=== PATIENT | female | born 1985 | race Caucasian/White ===

== ENCOUNTER 2024-02-05 19:51 | Emergency (ER) | payer BC, SELFPAY ==
[2024-02-05 20:09] VITALS: BP 130/84; PULSE 78; RESP 18; TEMP 37.2; O2SAT 97; BMI 29.8
--- NOTE | 2024-02-05 20:14 | ED.GENADULT ---
HPI - General Adult General Time Seen by Provider: 20:15 Date Seen: 02/05/24 Chief complaint: Unspecified Complaint, Adult Stated complaint: swollen all day Time Seen by Provider: 02/05/24 20:07 Source: patient, RN notes reviewed and old records reviewed Mode of arrival: ambulatory Limitations: no limitations History of Present Illness HPI narrative: 39-year-old female who comes in today complaining of joint pain and body swelling. Patient notes she woke up this morning and felt like her hands and arms were little bit puffy and tight. This has gotten worse during the course the day and she noticed that her legs seem little swollen the well, also some swelling of the face. She also has developed some pain in the joints of her hands, wrists, elbows and little bit in her knees and feet. Took ibuprofen for this with minimal improvement. Denies new exposures, denies recent sunburn, denies recent illness or sore throat, denies urinary symptoms. No chest pain or shortness of breath, does feel little bit of abdominal bloating. Related Data Home Medications Medication Instructions Recorded Confirmed No Known Home Medications 02/05/24 02/05/24 Allergies Allergy/AdvReac Type Severity Reaction Status Date / Time Sulfa (Sulfonamide Allergy Vomiting Verified 02/05/24 20:16 Antibiotics) acetaminophen [From Vicodin] AdvReac Vomiting Verified 02/05/24 20:16 hydrocodone [From Vicodin] AdvReac Vomiting Verified 02/05/24 20:16 [facility] Social History Smoking Status: Never smoker Do you use any of these nicotine containing products: None Second hand tobacco smoke exposure: No How often do you have a drink containing alcohol: monthly or less How often do you have six or more drinks on one occasion: Never AUDIT-C Alcohol total score: 1 Non-prescribed substance use: denies use service: No Exam Narrative: Exam Narrative: General: Well-developed and well-nourished, no acute distress Head: Atraumatic and normocephalic Eyes: Pupils are equal reactive, extraocular motions intact, conjunctiva clear ENT: External nose and ears are normal, posterior pharynx without erythema or exudate Neck: No midline cervical tenderness, full spontaneous range of motion the neck, trachea midline, no adenopathy Heart: Regular rate and rhythm no murmurs or thrills Lungs: Clear to auscultation bilaterally without wheezes or crackles Abdomen: Soft, nontender, nondistended with active bowel sounds Musculoskeletal: Mild edema of the hands, feet ankles and lower legs, forearms. No joint effusions or tenderness of the elbows, wrists, MCP, DI P, or PIP joints. Patient does have mild achiness of the D IP and PIP as well as the wrists with passive flexion and extension. Neurologic: Awake, alert, and oriented x3, no gross focal neurologic deficits, cranial nerves intact as tested Psych: Mood and affect are appropriate Skin: No rashes, sunburn Const: Vital Signs, click to edit/add: Vital Signs - 24 hr 02/05/24 20:09 Temperature 98.9 F Pulse Rate [Pulse Oximeter] 78 Respiratory Rate 18 Blood Pressure [Ri ght Upper Arm] 130/84 Pulse Oximetry 97 Oxygen Delivery Me thod Room Air Course Course ED Course: Patient seen examined, prior records reviewed. Patient presents today with sensation of swelling of the hands, arms, legs, and face as well as little bit of the abdomen. On exam, she has trace to mild swelling of the hands with loss of the heads of the metacarpals. Mild pain with passive movements of the DIP. PIP joints of the fingers bilaterally but no warmth, redness, tenderness, or swelling. Similar. Findings with wrists and elbows with again no joint redness, warmth, swelling, or effusion. Lungs are clear on exam. Concern for possible hepatic or renal pathology including nephrotic syndrome, viral infection, or rheumatologic process. Thyroid dysfunction also possible although fairly abrupt onset. Bacterial infectious etiology is clinically unlikely. Heart failure clinically unlikely in absence of chest pain, shortness of breath, abnormal lung exam, or pitting edema. Labs are ordered and will continue to monitor. Reevaluation(s) Time of Reevaluation #1: 21:50 Reevaluation #1: Labs ordered and independently interpreted by me with normal basic panel, normal CBC, negative CRP, normal BNP, urinalysis without proteinuria. No definite etiology for patient's swelling is found today, this could be related to fluid overload although no evidence for heart failure, no evidence for nephrotic syndrome or hepatic pathology. Cannot exclude rheumatologic condition but negative CRP makes this a little less likely. Discussed with patient, will be started on short course of prednisone close follow-up with primary care for further evaluation and treatment. Vital Signs Vital signs: Initial Vital Signs Temperature 98.9 F 02/05/24 20:09 Temperature Source Temporal Artery Scan 02/05/24 20:09 Pulse Rate 78 02/05/24 20:09 Pulse Rhythm Regular 02/05/24 20:09 Respiratory Rate 18 02/05/24 20:09 Blood Pressure 130/84 02/05/24 20:09 Blood Pressure Mean 99 02/05/24 20:09 Blood Pressure Position Supine 02/05/24 20:09 Pulse Oximetry 97 02/05/24 20:09 Oxygen Delivery Method Room Air 02/05/24 20:09 Vital Signs Temperature 98.9 F 02/05/24 20:09 Pulse Rate 78 02/05/24 20:09 Respiratory Rate 18 02/05/24 20:09 Blood Pressure 130/84 02/05/24 20:09 Pulse Oximetry 97 02/05/24 20:09 Oxygen Delivery Method Room Air 02/05/24 20:09 Temperature 98.9 F 02/05/24 20:09 Pulse Rate 78 02/05/24 20:09 Respiratory Rate 18 02/05/24 20:09 Blood Pressure 130/84 02/05/24 20:09 Pulse Oximetry 97 02/05/24 20:09 Oxygen Delivery Method Room Air 02/05/24 20:09 Medical Decision Making Lab Data Labs: Lab Results 02/05/24 02/05/24 Range/Units 20:30 21:00 WBC 5.83 (4.50-11.00) K/uL RBC 3.93 L (4.00-5.20) m/uL Hgb 12.1 (12.0-16.0) gm/dL Hct 34.8 (33.0-51.0) % MCV 89 (80-100) fL MCH 31 (26-34) pg MCHC 35 (32-36) gm/dL RDW Coeff of Tan 11.8 (11.5-15.5) % Plt Count 271 (140-440) K/uL Neut % (Auto) 56.5 (42.0-72.0) % Lymph % (Auto) 26.8 (20-44) % [place] % (Auto) 6.9 (0.0-11.0) % Eos % (Auto) 8.1 H (0.0-7.0) % Baso % (Auto) 1.2 (0.0-3.0) % Neut # (Auto) 3.30 (1.7-7.0) K/uL Lymph # (Auto) 1.56 (0.90-2.90) K/uL [place] # (Auto) 0.40 (0.00-0.90) K/UL Eos # (Auto) 0.50 (0.00-0.50) K/uL Baso # (Auto) 0.07 (0.00-0.30) K/uL Abs Immat Gran (auto) 0.03 (0.00-0.30) K/uL Imm/Tot Granulo (auto) 0.5 % Sodium 140 (135-149) mmol/L Potassium 3.7 (3.6-5.1) mmol/L Chloride 109 (96-114) mmol/L Carbon Dioxide 27 (20-32) mmol/L Anion Gap 4 L (7-15) mEq/L BUN 14 (5-24) mg/dL Creatinine 0.7 (0.5-1.5) mg/dL Estimated Creat Clear 111.65 Estimated GFR 112 ml/min Glucose 107 (60-115) mg/dL Calcium 8.5 (8.4-10.6) mg/dL Magnesium 2.1 (1.5-2.6) mg/dL Total Bilirubin 0.4 (0.1-1.5) mg/dL Direct Bilirubin 0.0 (0.0-0.5) mg/dL AST 28 (12-35) U/L ALT 26 (4-35) U/L Alkaline Phosphatase 48 (40-150) U/L C-Reactive Protein < 0.5 L (0.5-1.0) mg/dL NT-Pro-B Natriuret Pep 94 pg/mL Total Protein 6.8 (6.0-8.3) g/dL Albumin 3.9 (3.3-5.0) g/dL Urine Color Yellow (Yellow) Urine Appearance Clear (Clear) Urine pH 5.5 (5.0-8.5) Ur Specific Sunbright 1.015 (1.000-1.030) Urine Protein Negative (Negative) Urine Glucose (UA) Negative (Negative) Urine Ketones Negative (Negative) Urine Blood Negative (Negative) Urine Nitrite Negative (Negative) Urine Bilirubin Negative (Negative) Urine Urobilinogen 0.2 (0.2-1.0) Ur Leukocyte Esterase Negative (Negative) Urine RBC 0-2 (0-2) Urine WBC 0-2 (0-5) Ur Squamous Epith Cells Few (None-Few) Urine Bacteria Few A (None) Discharge Plan Discharge Clinical Impression: Arthralgia, Swelling Patient Disposition: Home, Self-Care Condition: Stable Instructions: Arthralgia (ED), Edema (ED) Additional Instructions: No definite cause for symptoms is found today. Testing for kidneys, liver, heart, inflammation are all negative. Take prednisone as prescribed follow-up with your regular doctor. Prescriptions: No Action No Known Home Medications Follow Up/Referrals: Raine Gomez MD [Primary Care Provider] - Stand Alone Forms: [employer] Info Instructions
--- NOTE | 2024-02-05 20:16 | PC.NURSE ---
Pt denies any recent travel, camping, hiking. Denies having food allergies. No recent illness. 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
--- OUTSIDE RECORDS SUMMARY | 2024-02-05 20:47 | XMS_ITS | Clinical Summary ---
Author Name Unknown Organization [facility] [employer] [facility] Address [place], [place] [address] Care Team Providers Care Onsite Health Coach Name Role Phone JasonRaine nieves MD Primary Care Provider Allergies Active Allergy Reactions Criticality Noted Date Comments Sulfa (Sulfonamide Antibiotics) *Unknown - Childhood Rxn Hydrocodone-Acetaminophen Vomiting 08/20/2013 Medications Medication Sig Dispensed Refills Start Date End Date Status multivitamin (MVI) tablet Take 1 tablet by mouth once daily. 0 10/29/2020 Active fluocinonide 0.05% topical (LIDEX) 0.05 % creamIndications:Ch ronic eczema Apply topically to affected area(s) two times daily. 30 g 06/10/2023 Active Phentermine HCl 30 mg capsuleIndications: Obesity (BMI 30.0-34.9) Take 1 Capsule (30 mg) by mouth once daily. 30 Capsule 11/25/2023 Active Active Problems Problem Noted Date Diagnosed Date Uterine leiomyoma 02/27/2016 Resolved Problems Problem Noted Date Diagnosed Date Resolved Date Normal in multigravida 03/24/2015 12/30/2015 Overview: Flu shot 07/14/2015. It's a girl! 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 consult obtained, fetus unaffected. Percocet and acetaminophen for pain control. May need hysteroscopy post It's a girl! TDaP 01/22/2014 GBS negative. HEMOGLOBIN (g/dL) Date Value 03/05/2014 14.0 Alcohol abuse, unspecified 03/27/2007 0 11/12/2013 Encounters Date Type Department Care Team Description 02/05/[address] [facility] [address] [place] [address] Raine Gomez MD Foot Pain/problem 11/27/[address] [facility] [address] [place] [address] Raine Gomez MD Refill Request (Phentermine Hcl) 11/25/[address] [facility] [address] [place] [address] Raine Gomez MD Refill Request (Phentermine HCL Oral Capsule 30mg ) from Last 3 Months Immunizations Name Administration Dates Next Due AMB Influenza, IIV4 PF (=>6 mos Flulaval,Fluzone Fluarix)(Flu Clinic Only) 07/24/2020 COVID-19 Vaccine Spikevax (M oderna 50mcg/0.5mL) 12YO+ [id number] Formula PF 08/10/2023 COVID-19 vaccine ([employer] NTech 30mcg/0.3mL) 12YO+ BIVALENT PF, MDV 08/18/2022 COVID-19 vaccine ([employer]-Bio NTech 30mcg/0.3mL) PF, MDV 08/14/2021 Influenza A (H1N1), Inactiva haritha (Age >=3 Years) 10/22/2009 Influenza, IIV3 (Age >=3 years) 09/03/2013 Influenza, IIV4 08/10/2023,,07/01/2021,06/08,06/20/2018,08/02/2017,10/11/2016 ,07/14/2015 MMR 04/17/1996 Meningococcal Vaccine 08/22/2002 Td (Age >=7 Years) 04/17/1996 Tdap 09/12/2015,01/22/2014,05/04/2006 Tuberculin (PPD) 04/10/2012 Family History Medical History Relation Name Comments Diabetes Father Hyperlipidemia Father Hypertension Father Cancer-breast Maternal Aunt diagnosed at age 59 Other Maternal Grandfather lung ca ncer with mets Good Health Maternal Grandmother Other Maternal Uncle brain cancer Good Health Mother Hyperlipidemia Mother Melanoma Mother Brain cancer Other maternal uncles x2, maternal cousins x3 Stroke Paternal Grandfather Stroke Paternal Grandmother Cancer-pancreatic No Family History Relation Name Status Comments Father Alive Maternal Aunt Alive Maternal Grandfather Maternal Grandmother Alive Maternal Uncle Mother Alive Other Paternal Grandfather Paternal Grandmother Social History Tobacco Use Types Packs/Day Years Used Date Smoking Tobacco: Never Smokeless Tobacco: Never Tobacco Cessation:Counseling Given: No Alcohol Use Standard Drinks/Week Comments Yes 0 (1 standard drink = 0.6 oz pur e alcohol) rare PHQ-2 Answer Date Recorded PHQ-2 TOTAL SCORE 1 03/30/2023 Social Connections Answer Date Recorded Frequency of Communication with Friends and Fami ly 0 04/27/2023 Financial Resource Strain Answer Date R ecorded Difficulty of Paying Living Expenses 3 04/27/2023 Difficulty of Paying Living Expenses Not on file 04/27/2023 Food Insecurity Answer Date Recorded Worried About Running Out of Food in the Last Ye ar 1 04/27/2023 Transportation Needs Answer Date Record ed Lack of Transportation (Medical) 1 04/27/2023 Housing Stability Answer Date Recorded Unable to Pay for Housing in the Last Year 1 04/27/2023 Sex and Gender Information Value Date Recorded Sex Assigned at Not on file Gender Identity Not on file Sexual Orientation Not on file Obstetrics History Para Term AB IAB SAB Ectopic Multiple Livin g Live Births 2 1 1 2 1 Date Outcome GA Total Labor Labor/2nd/3rd Weight Sex Delivery Anes PTL Leticia A1 A5 Name Cl in 03/31 Term 39w 6d F Vag Epidu ral N Latoya ng Tappe r Complications:Other Excessiv e Bleeding Last Filed Vital Signs Vital Sign Reading Time Taken Comments Blood Pressure 114/77 08/10/2023 4:04 PM [employer] HOME SALES REPRESENTATIVE Pulse 80 08/10/2023 4:04 PM [employer] HOME SALES REPRESENTATIVE Temperature 36.8 ??C (98.3 ??F) 09/09/2021 3:26 PM CS T Respiratory Rate 16 07/31/2013 8:52 PM [employer] HOME SALES REPRESENTATIVE Oxygen Saturation 100% 08/10/2023 4:04 PM IN HOME SALES REPRESENTATIVE Inhaled Oxygen Concentration - - Weight 98.7 kg (217 lb 9.6 oz) 08/10/2023 4:04 P M [employer] REPRESENTATIVE Height 175.3 cm (5' 9) 08/10/2023 4:04 PM [employer] HOME SALES REPRESENTATIVE Body Mass Index 32.13 08/10/2023 4:04 PM [employer] HOME SALES REPRESENTATIVE Plan of Treatment Health Maintenance Due Date Last Done Comments Depression screening for age 12+ 03/30/2024 03/30/2023, 03/01/2022, 02/26/2022, Additional history exists Influenza for age 9-49 05/27/2024 , 08/18/2022, 07/01/2021, Additional history exists BMI (ht and wt on same day) for age 18+ 08/10/2024 08/10/2023, 06/10/2023, 04/27/2023, Additional history exists Tetanus booster 09/12/2025 09/12/2015, 12/26, 05/04/2006, Additional history exists HIV for age 15-65 Completed 04/15/2015, 09/03/2013 Hepatitis C screening for age 18-79 Completed 04/15/2015 Tdap Completed 09/12/2015, 12/26, 05/04/2006 COVID-19 vaccine series Completed 08/10/20, 08/18/2022, 08/14/2021, Additional history exists Pneumococcal series for age 6-64 Aged Out No longer eligible based on patient's age to complete this topic Procedures Procedure Name Priority Date/Time Associated Diagnosis Comments ANTI HIV 1/2 Routine 04/15/2015 11:26 AM CDT ANTI HCV Routine 04/15/2015 11:26 AM CDT from Last 3 Months or Most Recently Relevant to Health Maintenance Results * ANTI HCV (04/15/2015 11:26 AM CDT) HEPATITIS C ANTIBODY Non-Reacti ve Non-Reacti ve 04/15/2015 4:53 PM CDT [facility] Blood specimen (specimen) BLOOD SPECIMEN / Unknown Venipuncture / Unknown 04/15/2015 11:26 AM CDT 04/15/2015 11:26 AM CDT Narrative [facility] - 04/15/2015 4:53 PM CDT Antibodies to HCV not detected; does not exclude the possibility of exposure to HCV. [employer] [facility] [address] [place] [address], * ANTI HIV 1/2 (04/15/2015 11:26 AM CDT) HIV-1/HIV-2 ANTIBODY Non-Reacti ve Non-Reacti ve 04/15/2015 4:57 PM CDT [facility] Blood specimen (specimen) BLOOD SPECIMEN / Unknown Venipuncture / Unknown 04/15/2015 11:26 AM CDT 04/15/2015 11:26 AM CDT Narrative [facility] - 04/15/2015 4:57 PM CDT HIV-1 p24 and HIV-1/HIV-2 Ab not detected [employer] [facility] [address] [place] [address], from Last 3 Months or Most Recently Relevant to Health Maintenance Care Teams Onsite Health Coach Relationship Specialty Start Date End Date Raine Gomez MD [address] [place] [id number] PCP - General Family Practice 09/27/14
[2024-02-05 21:09] LABS: Appearance Urine Clear (Clear); Bilirubin Urine Negative (Negative); Blood Urine Negative (Negative); Color Urine Yellow (Yellow); Glucose Urine Negative (Negative); Ketones Urine Negative (Negative); Leukocyte Esterase Urine Negative (Negative); Nitrite Urine Negative (Negative); Protein Urine Negative (Negative); Specific Gravity Urine 1.015 (1.000-1.030); Urobilinogen Urine 0.2 (0.2-1.0); pH Urine 5.5 (5.0-8.5)
[2024-02-05 21:13] LABS: Basophils Absolute Auto 0.07 K/uL (0.00-0.30); Basophils Percent Auto 1.2 % (0.0-3.0); Eosinophils Percent Auto 8.1 % (0.0-7.0); Hematocrit 34.8 % (33.0-51.0); Hemoglobin* 12.1 gm/dL (12.0-16.0); Immature Granulocytes Abs Auto 0.03 K/uL (0.00-0.30); Immature Granulocytes Pct Auto 0.5 %; Lymphocytes Absolute Auto 1.56 K/uL (0.90-2.90); Lymphocytes Percent Auto 26.8 % (20-44); Mean Corpuscular HGB Conc 35 gm/dL (32-36); Mean Corpuscular Hemoglobin 31 pg (26-34); Mean Corpuscular Volume 89 fL (80-100); Monocytes Percent Auto 6.9 % (0.0-11.0); Neutrophils Percent Auto 56.5 % (42.0-72.0); Platelet Count* 271 K/uL (140-440); RDW Coefficient of Variation % 11.8 % (11.5-15.5); Red Blood Count 3.93 m/uL (4.00-5.20); White Blood Count* 5.83 K/uL (4.50-11.00)
[2024-02-05 21:23] LABS: Slide Review Reflex No
[2024-02-05 21:24] LABS: Bacteria Urine Few; RBC Urine 0-2 (0-2); Squamous Epithelial Cell Urine Few (None-Few); WBC Urine 0-2 (0-5)
[2024-02-05 21:27] LABS: Albumin* 3.9 g/dL (3.3-5.0); Chloride* 109 mmol/L (96-114)
[2024-02-05 21:28] LABS: Potassium* 3.7 mmol/L (3.6-5.1); Sodium* 140 mmol/L (135-149)
[2024-02-05 21:30] LABS: Creatinine* 0.7 mg/dL (0.5-1.5); Est. Creatinine Clearance* 111.65; Estimated Glomerular Filt Rate 112 ml/min
[2024-02-05 21:31] LABS: Alanine Aminotransferase* 26 U/L (4-35); Alkaline Phosphatase* 48 U/L (40-150); Anion Gap 4 mEq/L (7-15); Aspartate Amino Transferase* 28 U/L (12-35); Bilirubin Total* 0.4 mg/dL (0.1-1.5); Blood Urea Nitrogen* 14 mg/dL (5-24); Calcium* 8.5 mg/dL (8.4-10.6); Carbon Dioxide* 27 mmol/L (20-32); Glucose* 107 mg/dL (60-115); Magnesium* 2.1 mg/dL (1.5-2.6); Total Protein* 6.8 g/dL (6.0-8.3)
[2024-02-05 21:35] LABS: C Reactive Protein* < 0.5 mg/dL (0.5-1.0)
[2024-02-05 21:41] LABS: NT Pro B Type NatriureticPept* 94 pg/mL
[2024-02-05 22:04] LABS: Erythrocyte SedimentationRate* 7 mm/hr (2-20)
== END 2024-02-05 22:11 | disposition home or self-care (01) ==
PROVIDERS: Emergency Provider Family Medicine; PCP Family Medicine
DX: M25.541 Pain in joints of right hand (principal); M25.542 Pain in joints of left hand; R22.33 Localized swelling, mass and lump, upper limb, bilateral
CPT/HCPCS: 36415; 80048; 80076; 81001; 83735; 83880; 84443; 85025; 85651; 86140; 87086; 99283; 99284